=== PATIENT | female | born 1950 | race Caucasian/White ===

== ENCOUNTER → 2016-12-16 | Outpatient (CLI) | payer OTHER ==
[~2016-12-16] MED LIST: MELO7.5T5 PO; MULT-610 PO; OXYC1TAB3 PO
--- NOTE | 2016-12-16 14:35 | DIAGNOSTIC IMAGING REPORT ---
RIGHT HIP 2 VIEWS HISTORY: M25.551 Right hip pain Right COMPARISON: None. FINDINGS: There is no fracture or dislocation. Soft tissues are unremarkable. No radiopaque foreign bodies. The visualized pelvic bones are intact. Right hip cartilage space is maintained for age. IMPRESSION: No fracture or dislocation within the right hip. Electronically signed by: Connor Malik M.D. 12/16/2016 2:34 PM Dictated Date/Time: 12/16/2016 2:31 PM
== END | disposition home or self-care (01) ==
LOC: C.RAD 13:56
PROVIDERS: ATTEND Internal Medicine
DX: M25.551 Pain in right hip (principal)

== ENCOUNTER → 2017-02-28 | Outpatient (CLI) | payer OTHER ==
--- NOTE | 2017-02-28 11:37 | DIAGNOSTIC IMAGING REPORT ---
RIGHT KNEE INCLUDING BILATERAL STANDING AP VIEWS CLINICAL HISTORY: Right knee pain COMPARISON: None. DISCUSSION: The joint space of each knee appears symmetric on the standing view. No fractures are visualized. There are no erosive or destructive changes. There is no evidence for soft tissue swelling. IMPRESSION: No evidence of fracture. No erosive or destructive changes are visualized. Electronically signed by: Hitesh Howell M.D. 02/28/2017 11:35 AM Dictated Date/Time: 02/28/2017 11:34 AM
--- NOTE | 2017-02-28 11:39 | DIAGNOSTIC IMAGING REPORT ---
RIGHT KNEES, AP STANDING ( no charge) CLINICAL HISTORY: Right knee pain COMPARISON: None. DISCUSSION: The study was read in conjunction with a right knee series. No fractures are visualized. The joint spaces appear symmetric on this standing AP view. IMPRESSION: No significant joint space narrowing given the patient's age Electronically signed by: Hitesh Howell M.D. 02/28/2017 11:37 AM Dictated Date/Time: 02/28/2017 11:36 AM
== END | disposition home or self-care (01) ==
LOC: C.RAD 08:54
PROVIDERS: ATTEND Internal Medicine
DX: M25.561 Pain in right knee (principal)

== ENCOUNTER → 2017-03-02 | Outpatient (CLI) | payer OTHER ==
--- NOTE | 2017-03-02 16:37 | DIAGNOSTIC IMAGING REPORT ---
MRI THE RIGHT KNEE NO CONTRAST CLINICAL HISTORY: Right knee pain status post trauma COMPARISON STUDY: Conventional radiographic study dated 02/28/2017 FINDINGS: Imaging was performed the sagittal, coronal, and axial planes. There are no areas of marrow edema to indicate occult fracture or bone bruise. The quadriceps and patellar tendons appear intact. The medial and lateral collateral ligaments appear intact. The patellar retinacular structures appear intact. No tears a lateral meniscus are visualized. There is a root tear of the medial meniscus. IMPRESSION: Medial meniscus root tear. Electronically signed by: Hitesh Howell M.D. 03/02/2017 4:35 PM Dictated Date/Time: 03/02/2017 4:33 PM
[2017-03-02 17:15] LABS: BLOOD UREA NITROGEN 11 mg/dl (7-18); BUN/CREATININE RATIO 14.3 (10-20); CALCIUM 8.8 mg/dl (8.5-10.1); CARBON DIOXIDE 29 mmol/L (21-32); CHLORIDE 99 mmol/L (98-107); CREATININE 0.74 mg/dl (0.60-1.20); GLUCOSE 105 mg/dl (70-99); POTASSIUM 3.9 mmol/L (3.5-5.1); SODIUM 135 mmol/L (136-145)
== END | disposition home or self-care (01) ==
LOC: C.MRIBC 15:31
PROVIDERS: ATTEND Internal Medicine
DX: S83.241A Other tear of medial meniscus, current injury, right knee, initial encounter (principal); G47.9 Sleep disorder, unspecified; R26.81 Unsteadiness on feet; R20.0 Anesthesia of skin; W19.XXXA Unspecified fall, initial encounter; M54.5 Low back pain

== ENCOUNTER → 2017-03-03 | Outpatient (CLI) | payer OTHER ==
[~2017-03-03] MED LIST changes: +GADAVIST IV PRN
--- NOTE | 2017-03-03 12:37 | DIAGNOSTIC IMAGING REPORT ---
MRI LUMBAR SPINE COMBINATION CLINICAL HISTORY: Back pain with right leg radiculopathy. TRAUMA TECHNIQUE: Sagittal and axial T1, T2 and STIR images were obtained. Imaging was performed before and after the administration of 6.5 cc of intravenous Gadavist. COMPARISON STUDY: No previous studies for comparison. OBSERVATIONS: The vertebral bodies and posterior elements appear intact. There is no abnormal bony signal present to suggest a marrow replacement process. L1-2: No disc protrusions or extrusions. No evidence of spinal canal or neural foraminal compromise. L2-3: No disc protrusions or extrusions. No evidence of spinal canal or neural foraminal compromise. L3-4: There is a circumferential disc bulge with mild triangular spinal canal narrowing. There is no significant foraminal stenosis. L4-5: There is a circumferential disc bulge present. There is mild spinal stenosis. There is minor right-sided foraminal narrowing. L5-S1: There is a mild circumferential disc bulge. There is mild facet joint arthropathy. There is no spinal stenosis. There is mild left-sided foraminal narrowing. The conus medullaris and cauda equina appear normal. There is increased T1 signal within the left L3 nerve root. This finding is of doubtful clinical significance given the reported right-sided symptoms. IMPRESSION: 1. Multilevel spondylitic changes. Mild spinal stenosis at the L3-4 and L4-5 levels. Right-sided foraminal narrowing at the L4-5 level. Left-sided foraminal narrowing at the L5-S1 level. 2. No evidence of pathologic enhancement Electronically signed by: Hitesh Howell M.D. 03/03/2017 12:34 PM Dictated Date/Time: 03/03/2017 12:28 PM
== END | disposition home or self-care (01) ==
LOC: C.MRI 10:29
PROVIDERS: ATTEND Internal Medicine
DX: M25.551 Pain in right hip (principal); M48.00 Spinal stenosis, site unspecified; M85.80 Other specified disorders of bone density and structure, unspecified site; R26.81 Unsteadiness on feet; R20.0 Anesthesia of skin

== ENCOUNTER → 2017-03-07 | Outpatient (CLI) | payer OTHER ==
[~2017-03-07] MED LIST changes: -GADAVIST IV PRN
[2017-03-07 09:55] LABS: URINE APPEARANCE CLEAR (CLEAR); URINE BILIRUBIN NEG (NEG); URINE COLOR YELLOW; URINE EPITHELIAL CELL AUTO 0-5 /lpf (0-5); URINE NITRITE NEG (NEG); URINE PH 6.5 (4.5-7.5); URINE SPECIFIC GRAVITY 1.007 (1.000-1.030); UROBILINOGEN NEG (NEG); ZZUR CULT IF INDIC CLEAN CATCH NO
[2017-03-07 09:59] LABS: MANUAL MICROSCOPIC REQUIRED? NO; REVIEW REQ? NO
[2017-03-07 10:22] LABS: ALT/SGPT 18 U/L (12-78); BLOOD UREA NITROGEN 6 mg/dl (7-18); BUN/CREATININE RATIO 10.7 (10-20); CALCIUM 8.7 mg/dl (8.5-10.1); CARBON DIOXIDE 28 mmol/L (21-32); CHLORIDE 94 mmol/L (98-107); CREATININE 0.57 mg/dl (0.60-1.20); GLUCOSE 101 mg/dl (70-99); POTASSIUM 4.2 mmol/L (3.5-5.1); SODIUM 129 mmol/L (136-145)
[2017-03-07 10:25] LABS: ALB/GLOB RATIO 1.1 (0.9-2); ALKALINE PHOSPHATASE 51 U/L (45-117); AST/SGOT 13 U/L (15-37)
== END | disposition home or self-care (01) ==
LOC: C.LAB 08:19
PROVIDERS: ATTEND Internal Medicine
DX: M48.00 Spinal stenosis, site unspecified (principal)

== ENCOUNTER 2017-03-09 16:23 | Emergency (ER) | payer OTHER ==
[~2017-03-09] VITALS: Ht 162.6 cm; Wt 60.0 kg
[2017-03-09 16:28] VITALS: TEMP 36.4; Ht 162.6 cm; Wt 60.0 kg
[2017-03-09] MEDS ORDERED: ACETAMINOPHEN 500 MG TAB PO STA (16:43)
[2017-03-09] MEDS ORDERED: KETOROLAC TROMETHAMINE 60 MG/2 ML VIAL IM STA (16:43)
[2017-03-09] MEDS ORDERED: MULT-610 PO (16:57)
[2017-03-09] MEDS ORDERED: MELO7.5T5 PO (16:57)
--- NOTE | 2017-03-09 17:28 | DIAGNOSTIC IMAGING REPORT ---
RIGHT KNEE 3 VIEWS CLINICAL HISTORY: Right knee pain following injury. COMPARISON: Right knee radiograph February 28, 2017 and MRI of the right knee March 02, 2017. FINDINGS: Alignment of the right knee is anatomic. There is no acute fracture or joint effusion. Joint spaces are preserved. There is minimal osteophytosis of the right knee. IMPRESSION: No acute fracture or joint effusion of the right knee. Electronically signed by: Phong Alvarado M.D. 03/09/2017 5:26 PM Dictated Date/Time: 03/09/2017 5:25 PM
[2017-03-09] MEDS ORDERED: OXYCODONE IR HOME PACK PO ONE (17:45)
[2017-03-09] MEDS ORDERED: OXYCODONE HCL IR 5 MG TAB (IMMEDIATE RELEASE) PO STA (17:45)
[2017-03-09] MEDS ORDERED: OXYC1TAB3 PO (17:48)
[2017-03-09 18:25] VITALS: BP 116/74; PULSE 66; O2SAT 98
--- NOTE | 2017-03-09 21:38 | EMERGENCY ROOM VISIT NOTE ---
ED Visit Note First contact with patient: 16:29 CHIEF COMPLAINT: knee pain HISTORY OF PRESENT ILLNESS: This 66 year old female patient presents to the emergency department after sustaining an injury to the right knee after it " gave out" while walking about 30 minutes ago. The patient denies any other injuries besides their knee. The patient is without significant swelling or bruising. There is pain medially. They rate the pain as dull and 9/10. The patient states they are not able to walk on it. No numbness or tingling. She has been having issues with this knee over the past several months. She has undergone physical therapy without improvement. She did have an MRI about one week ago which showed a meniscus tear in this knee. She states that today she was feeling much better than previous up until the time of her injury. REVIEW OF SYSTEMS: A 6 system review of systems was completed with positives and pertinent negatives listed in the HPI. ALLERGIES: No known allergies MEDICATIONS: No chronic medications PMH: Otherwise healthy SOCIAL HISTORY: Employed at this facility and lives in [place] PHYSICAL EXAM: Vital Signs: Reviewed Nurse's notes, vital signs stable. GENERAL : White female, no acute distress, but appears in pain, well-developed, well- nourished. MENTAL STATUS: Alert, oriented to person place and time, and cooperative. MUSCULOSKELETAL: The right knee is no swollen. There is no ecchymosis. There is no joint effusion present. The patient is tender medially. There is medial joint line tenderness. The patella does not subluxate. Range of motion is normal. Strength of the quads and hamstrings is 3/ 5. Lissa's is negative. Anita's and Anterior Drawer tests are negative. Varus and valgus straining was not performed secondary to patient discomfort. The foot and toes are warm and well-perfused. Dorsalis pedis pulse 2+. Sensation to pain and light touch is intact. Capillary refill less than 2 seconds. RIGHT KNEE 3 VIEWS CLINICAL HISTORY: Right knee pain following injury. COMPARISON: Right knee radiograph February 28, 2017 and MRI of the right knee March 02, 2017. FINDINGS: Alignment of the right knee is anatomic. There is no acute fracture or joint effusion. Joint spaces are preserved. There is minimal osteophytosis of the right knee. IMPRESSION: No acute fracture or joint effusion of the right knee. EMERGENCY DEPARTMENT COURSE: Physical exam and history were performed. Nursing notes and EMR were reviewed. The patient appears to have stumbled after her knee gave out today, causing increased pain to her right knee. The patient has been following with [facility] orthopedics for this knee over the past several months. She has been doing physical therapy and had an outpatient MRI a week ago that showed a meniscus tear. X-rays today do not show evidence of acute fracture or significant effusion. The patient was given IM Toradol, oral Tylenol, and OxyIR for her symptoms. Following this she did have some improvement of her symptoms. The patient appears well for discharge home, and will be placed in a knee immobilizer. She was given crutches and a short prescription of OxyIR. I did recommend the patient contact [facility] orthopedics to arrange for further follow-up. The patient was otherwise invited back to the ER with any new, worsening, or concerning symptoms. Current/Historical Medications Scheduled Meloxicam (Mobic), 7.5 MG PO BID Multiple Vitamins W/ Minerals (Centrum Adults), 1 TAB PO DAILY Scheduled PRN Oxycodone Ir (Roxicodone Ir), 1-2 TAB PO Q6 PRN for Pain Allergies Coded Allergies: No Known Allergies (Unverified , 03/09/17) Vital Signs Date Time Temp Pulse Resp B/P Pulse Ox O2 Delivery O2 Flow Rate FiO2 03/09/17 18:25 66 14 116/74 98 03/09/17 17:16 62 12 122/82 03/09/17 16:28 36.4 84 18 133/80 99 Room Air Medications Administered Medications (Trade) Dose Ordered Sig/Anthony Route Start Time Stop Time Status Last Admin Dose Admin Ketorolac Tromethamine (Toradol Inj) 60 mg NOW STAT IM 03/09/17 16:43 03/09/17 16:44 DC 03/09/17 16:57 60 MG Acetaminophen (Tylenol Tab) 1,000 mg NOW STAT PO 03/09/17 16:43 03/09/17 16:44 DC 03/09/17 16:57 1,000 MG Oxycodone HCl (Roxicodone Immediate Rel 5MG Home Pack) 1 homepack UD ONCE PO 03/09/17 17:45 03/09/17 17:47 DC 03/09/17 18:14 1 HOMEPACK Oxycodone HCl (Roxicodone Immediate Rel Tab) 5 mg NOW STAT PO 03/09/17 17:45 03/09/17 17:47 DC 03/09/17 18:16 5 MG Departure Information Impression Primary Impression: Injury of right knee Dispostion Home / Self-Care Condition GOOD Prescriptions Oxycodone Ir (Roxicodone Ir) 5 Mg Tab 1-2 TAB PO Q6 Y for Pain, #24 TAB For Initial Treatment Prov: Choco Fuchs PA-C 03/09/17 Referrals Rc Carlson,P.A. Forms HOME CARE DOCUMENTATION FORM, IMPORTANT VISIT INFORMATION Patient Instructions My [facility] Additional Instructions You were seen and evaluated today on an emergency basis only. This is not a substitute for, or an effort to provide, complete comprehensive medical care. It is not possible to recognize and treat all injuries or illnesses in a single emergency department visit. For this reason it is recommended that you followup with [facility] orthopedics by telephone tomorrow to make a follow-up visit next week. Let them know you were seen in the emergency department to help facilitate care. Oxycodone (OxyIR) 5mg: Take ONE pill every SIX hours for breakthrough pain. Avoid alcohol, operating machinery or dangerous equipment, working on ladders or roofs, DRIVING, or situations where being under the influence may be dangerous. It is recommended to use an alin-mdb-sutbljy stool softener such as Colace, 100mg twice daily while taking this medication to avoid constipation. Continue [id number] naproxen and Tylenol as previously instructed by orthopedics. Use your knee immobilizer and walker to help prevent further injury or falls. You are welcome to return to the emergency department anytime with new, worsening, or concerning symptoms.
== END 2017-03-09 18:27 | disposition home or self-care (01) ==
LOC: C.EDB 16:24 → C.EDD 18:27
DX: S89.91XA Unspecified injury of right lower leg, initial encounter (principal); X50.9XXA Other and unspecified overexertion or strenuous movements or postures, initial encounter; Y93.01 Activity, walking, marching and hiking

== ENCOUNTER → 2017-03-09 | Outpatient (CLI) | payer OTHER ==
[2017-03-09 11:10] LABS: BLOOD UREA NITROGEN 6 mg/dl (7-18); BUN/CREATININE RATIO 10.1 (10-20); CALCIUM 9.1 mg/dl (8.5-10.1); CARBON DIOXIDE 26 mmol/L (21-32); CHLORIDE 102 mmol/L (98-107); GLUCOSE 111 mg/dl (70-99); POTASSIUM 4.7 mmol/L (3.5-5.1); SODIUM 138 mmol/L (136-145)
[2017-03-09 15:01] LABS: LYME DISEASE AB IGG NEG (NEG); LYME DISEASE AB IGM NEG (NEG)
== END | disposition home or self-care (01) ==
LOC: C.LAB 09:21
PROVIDERS: ATTEND Internal Medicine
DX: E87.1 Hypo-osmolality and hyponatremia (principal); M79.1 Myalgia

== ENCOUNTER → 2017-03-27 | Outpatient (CLI) | payer OTHER | END | disposition home or self-care (01) | LOC: C.LABSPEC 08:19 | PROVIDERS: ATTEND Internal Medicine | DX: M62.830 Muscle spasm of back (principal); M54.5 Low back pain; M79.1 Myalgia; R20.0 Anesthesia of skin; G47.9 Sleep disorder, unspecified ==

== ENCOUNTER → 2017-04-11 | Outpatient (CLI) | payer OTHER ==
--- NOTE | 2017-04-11 11:31 | DIAGNOSTIC IMAGING REPORT ---
RENAL ULTRASOUND HISTORY: Hematuria R31.29 Hematuria, microscopic COMPARISON: None. FINDINGS: Right kidney: Maximum dimension 12.0 cm. No evidence for hydronephrosis. 1.6 cm cyst. Normal corticomedullary differentiation and cortical thickness. Left kidney: Maximum dimension 11.5 cm. No evidence for hydronephrosis. Several small parapelvic cyst. Normal corticomedullary differentiation and cortical thickness. Bladder: No bladder wall thickening. The bilateral ureteral jets were identified. IMPRESSION: Small renal cysts bilaterally. Otherwise negative study Electronically signed by: Arnel Lovelace M.D. 04/11/2017 11:29 AM Dictated Date/Time: 04/11/2017 11:29 AM
== END | disposition home or self-care (01) ==
LOC: C.ULTR 10:55
PROVIDERS: ATTEND Internal Medicine Nephrology
DX: R31.29 Other microscopic hematuria (principal); N28.1 Cyst of kidney, acquired

== ENCOUNTER → 2017-04-27 | Outpatient (CLI) | payer OTHER | END | disposition home or self-care (01) | LOC: C.LAB 13:05 | PROVIDERS: ATTEND Internal Medicine | DX: E87.1 Hypo-osmolality and hyponatremia (principal); N14.4 Toxic nephropathy, not elsewhere classified; R26.81 Unsteadiness on feet; R20.2 Paresthesia of skin ==

== ENCOUNTER → 2017-05-19 | Outpatient (CLI) | payer OTHER ==
[2017-05-19 12:30] LABS: C-REACTIVE PROTEIN < 0.29 mg/dl (0-0.29)
[2017-05-23 04:35] LABS: ANTI-CENTROMERE AB <1.0 NEG AI (<1.0 NEG); ANTI-SS-A <1.0 NEG AI (<1.0 NEG); ANTI-SS-B <1.0 NEG AI (<1.0 NEG); DNA ds CRITHIDIA NEGATIVE (NEGATIVE); MICROSOMAL AB 5 IU/ML (<9); PARVOVIRUS IgM INDEX 0.2 (<0.9); Sm Antibody <1.0 NEG AI (<1.0 NEG)
== END | disposition home or self-care (01) ==
LOC: C.LAB 10:15
PROVIDERS: ATTEND Internal Medicine
DX: R20.2 Paresthesia of skin (principal)

== ENCOUNTER → 2017-05-31 | Outpatient (CLI) | payer OTHER ==
[2017-05-31 14:50] LABS: URINE APPEARANCE CLEAR (CLEAR); URINE BILIRUBIN NEG (NEG); URINE COLOR YELLOW; URINE EPITHELIAL CELL AUTO 0-5 /lpf (0-5); URINE NITRITE NEG (NEG); URINE PH 7.5 (4.5-7.5); URINE SPECIFIC GRAVITY 1.016 (1.000-1.030); UROBILINOGEN NEG (NEG)
[2017-05-31 14:55] LABS: MANUAL MICROSCOPIC REQUIRED? NO; REVIEW REQ? NO
== END | disposition home or self-care (01) ==
LOC: C.LAB 12:47
PROVIDERS: ATTEND Internal Medicine Nephrology
DX: R31.29 Other microscopic hematuria (principal)

== ENCOUNTER → 2017-06-12 | Outpatient (CLI) | payer OTHER | END | disposition home or self-care (01) | LOC: C.LABSPEC 08:32 | PROVIDERS: ATTEND Internal Medicine Nephrology | DX: N14.4 Toxic nephropathy, not elsewhere classified (principal) ==

== ENCOUNTER → 2017-06-22 | Outpatient (CLI) | payer OTHER ==
[2017-06-22 11:21] LABS: BLOOD UREA NITROGEN 13 mg/dl (7-18); BUN/CREATININE RATIO 22.8 (10-20); CALCIUM 9.3 mg/dl (8.5-10.1); CARBON DIOXIDE 27 mmol/L (21-32); CHLORIDE 107 mmol/L (98-107); CREATININE 0.57 mg/dl (0.60-1.20); GLUCOSE 97 mg/dl (70-99); SODIUM 140 mmol/L (136-145)
[2017-06-26 11:05] LABS: COLLECTION SAMPLE Venous; LEAD BLOOD <1 mcg/dL (<5); VITAMIN B6** TC 926 11.2 ng/mL (2.1-21.7)
== END | disposition home or self-care (01) ==
LOC: C.LAB 08:26
PROVIDERS: ATTEND Internal Medicine
DX: N14.4 Toxic nephropathy, not elsewhere classified (principal); R73.9 Hyperglycemia, unspecified; M79.1 Myalgia

== ENCOUNTER → 2017-07-23 | Outpatient (CLI) | payer OTHER ==
--- NOTE | 2017-08-04 06:39 | CODING QUERY NO DIAGNOSIS ---
TREATMENT RENDERED WITHOUT A DIAGNOSIS To promote full compliance with coding requirements relating to patient care, physician participation is requested in all cases of body sander uncertainty. Please assist us with providing a diagnosis/symptom for the test(s) below: A diagnosis/symptom was not documented on your Order. A valid diagnosis/symptom is required to bill all insurances. Please remember that we are unable to code a diagnosis of rule out, probable, possible, questionable, or suspected. Tests that require a diagnosis: DOS 07/23 * Gadolinium, 24 hr Urine DIAGNOSIS: Provider Signature: Date: Thank you Jaky [address] [facility] Information Management Once completed, please kindly fax back to [phone] For questions please call [phone]
== END | disposition home or self-care (01) ==
LOC: C.LABSPEC 08:07
PROVIDERS: ATTEND Internal Medicine
DX: N14.4 Toxic nephropathy, not elsewhere classified (principal); R20.0 Anesthesia of skin; R20.2 Paresthesia of skin

== ENCOUNTER → 2017-07-25 | Outpatient (CLI) | payer OTHER ==
[2017-07-27 07:34] LABS: METHYLMALONIC ACID 91 NMOL/L (87-318)
== END | disposition home or self-care (01) ==
LOC: C.LAB 10:19
PROVIDERS: ATTEND Psychiatry & Neurology Neurology
DX: R20.2 Paresthesia of skin (principal)

== ENCOUNTER → 2017-09-19 | Outpatient (CLI) | payer OTHER ==
[~2017-09-19] MED LIST changes: -OXYC1TAB3 PO
== END | disposition home or self-care (01) ==
LOC: C.PAPS 09:19
PROVIDERS: ATTEND Obstetrics & Gynecology
DX: Z12.4 Encounter for screening for malignant neoplasm of cervix (principal)

== ENCOUNTER → 2017-10-31 | Outpatient (CLI) | payer OTHER ==
--- NOTE | 2017-11-01 07:35 | MAMMOGRAPHY REPORT ---
BILATERAL DIGITAL SCREENING MAMMOGRAM TOMOSYNTHESIS WITH CAD: 10/31/2017 CLINICAL HISTORY: Routine screening. Patient has no complaints. TECHNIQUE: Breast tomosynthesis in addition to standard 2D mammography was performed. Current study was also evaluated with a Computer Aided Detection (CAD) system. COMPARISON: Comparison is made to exams dated: 09/08/2016 mammogram - [facility], 07/17/2015 mammogram, 06/06/2014 mammogram, 05/28/2013 mammogram, 05/18/2012 mammogram, and 04/29/2011 mammo gram. BREAST COMPOSITION: There are scattered areas of fibroglandular density in both breasts. FINDINGS: The glandular pattern is similar to prior mammograms. There are a few benign-appearing estefania cifications. No suspicious mass, architectural distortion or cluster of microcalcifications is seen. IMPRESSION: ACR BI-RADS CATEGORY 1: NEGATIVE There is no mammographic evidence of malignancy. A 1 year screening mammogram is recommended. The pa tient will receive written notification of the results. Approximately 10% of breast cancers are not detected with mammography. A negative mammographic report should not delay biopsy if a clinically suggestive mass is present. Arlene Sosa M.D. ay/:11/01/2017 07:10:31 Powder Shoveler: Genevieve GOMEZ(James)(Zia), [facility] letter sent: Normal 1/2 BI-RADS Code: ACR BI-RADS Category 1: Negative
== END | disposition home or self-care (01) ==
LOC: C.MAMM 11:57
PROVIDERS: ATTEND Obstetrics & Gynecology
DX: Z12.31 Encounter for screening mammogram for malignant neoplasm of breast (principal)

== ENCOUNTER → 2017-11-05 | Outpatient (CLI) | payer OTHER | END | disposition home or self-care (01) | LOC: C.LABSPEC 08:56 | PROVIDERS: ATTEND Psychiatry & Neurology Neurology | DX: R20.2 Paresthesia of skin (principal) ==

== ENCOUNTER → 2017-11-14 | Outpatient (CLI) | payer OTHER ==
--- NOTE | 2017-11-14 12:44 | DIAGNOSTIC IMAGING REPORT ---
CHEST 2 VIEWS ROUTINE CLINICAL HISTORY: J18.1 Right lower lobe pneumonia COMPARISON STUDY: No previous studies for comparison. FINDINGS: The cardiac and mediastinal contours are normal. There is no evidence of focal pulmonary consolidation. There is no evidence of failure. No pleural effusions are visualized.[ There is minimal scar/atelectatic change at the right lung base. IMPRESSION: No active disease in the chest. Electronically signed by: Hitesh Howell M.D. 11/14/2017 12:43 PM Dictated Date/Time: 11/14/2017 12:43 PM
== END | disposition home or self-care (01) ==
LOC: C.RAD 12:14
PROVIDERS: ATTEND Internal Medicine
DX: J18.1 Lobar pneumonia, unspecified organism (principal)

== ENCOUNTER → 2017-12-06 | Outpatient (CLI) | payer OTHER ==
[2017-12-06 13:34] LABS: ALBUMIN 3.9 gm/dl (3.4-5.0); BLOOD UREA NITROGEN 10 mg/dl (7-18); CALCIUM 9.2 mg/dl (8.5-10.1); CARBON DIOXIDE 27 mmol/L (21-32); CREATININE 0.55 mg/dl (0.60-1.20); GLUCOSE 98 mg/dl (70-99); SODIUM 134 mmol/L (136-145)
== END | disposition home or self-care (01) ==
LOC: C.LAB 10:37
PROVIDERS: ATTEND Internal Medicine Nephrology
DX: R31.29 Other microscopic hematuria (principal)

== ENCOUNTER → 2018-01-07 | Outpatient (CLI) | payer OTHER ==
--- NOTE | 2018-01-25 11:15 | CODING QUERY NO DIAGNOSIS ---
Valid Physician Order Needed A valid physician order must be submitted in order to properly bill for the service(s) provided, including date of service(s), valid diagnosis, and physician signature. If these tests are done on a recurring basis the original physician order must be submitted in order to code and bill for the service(s) provided. Please fax us the original, signed physician order so that we may expedite billing to [phone] DOS 01/07/18 * Gadolinium 24 hour urine (per Patient Access, no order in [employer]) Thank you Jennifer Guevara [facility] Information Management
== END | disposition home or self-care (01) ==
LOC: C.LABSPEC 09:14
PROVIDERS: ATTEND Internal Medicine
DX: N14.4 Toxic nephropathy, not elsewhere classified (principal)

== ENCOUNTER → 2018-01-30 | Outpatient (CLI) | payer OTHER | END | disposition home or self-care (01) | LOC: C.LAB 08:38 | PROVIDERS: ATTEND Psychiatry & Neurology Neurology | DX: R23.8 Other skin changes (principal) ==

== ENCOUNTER → 2018-02-16 | Outpatient (CLI) | payer OTHER ==
--- NOTE | 2018-02-16 12:36 | DIAGNOSTIC IMAGING REPORT ---
R HAND MIN 3 VIEWS ROUTINE, L HAND MIN 3 VIEWS ROUTINE HISTORY: 67 years-old Female FINGER SWELLING,MYALGIA BOTH HANDS chronic bilateral hand pain with finger swelling COMPARISON: None available TECHNIQUE: 3 views of the bilateral hands for a total of 6 images FINDINGS: LEFT: Bones are mildly demineralized. Mild radiocarpal, first metacarpal and multidigit interphalangeal degenerative changes. Moderate joint space narrowing seen within the second DIP and third PIP joints. Minimal medial subluxation of the second DIP joint, likely degenerative in nature. No opaque foreign body. No acute fracture or dislocation. Mild soft tissue swelling of the third and fourth digits. RIGHT: Bones are mildly demineralized. No acute fracture or dislocation. Mild radiocarpal, first carpometacarpal and multidigit interphalangeal degenerative changes. Moderate joint space narrowing of the third and fifth DIP joints. No opaque foreign body. Soft tissues are unremarkable. IMPRESSION: 1. No acute fracture or dislocation. 2. Mildly demineralized appearance of the bones with mostly mild osteoarthritis seen bilaterally. Moderate degenerative changes are seen within several interphalangeal joints as above. 3. Mild soft tissue swelling of the left third and fourth digits. The above report was generated using voice recognition software. It may contain grammatical, syntax or spelling errors. Electronically signed by: Benjamín Ramos M.D. 02/16/2018 12:34 PM Dictated Date/Time: 02/16/2018 12:29 PM
== END | disposition home or self-care (01) ==
LOC: C.RAD 10:26
PROVIDERS: ATTEND Internal Medicine Rheumatology
DX: M79.1 Myalgia (principal); M79.89 Other specified soft tissue disorders; L94.3 Sclerodactyly; M19.041 Primary osteoarthritis, right hand; M19.042 Primary osteoarthritis, left hand

== ENCOUNTER → 2018-03-11 | Outpatient (CLI) | payer OTHER | END | disposition home or self-care (01) | LOC: C.LABSPEC 09:14 | PROVIDERS: ATTEND Psychiatry & Neurology Neurology | DX: T56.891A Toxic effect of other metals, accidental (unintentional), initial encounter (principal) ==

== ENCOUNTER → 2018-06-13 | Outpatient (CLI) | payer OTHER ==
[2018-06-13 10:00] LABS: BLOOD UREA NITROGEN 13 mg/dl (7-18); CARBON DIOXIDE 29 mmol/L (21-32); GLUCOSE 83 mg/dl (70-99); POTASSIUM 4.3 mmol/L (3.5-5.1); SODIUM 139 mmol/L (136-145)
== END | disposition home or self-care (01) ==
LOC: C.LAB 08:12
PROVIDERS: ATTEND Internal Medicine Nephrology
DX: E87.1 Hypo-osmolality and hyponatremia (principal); R31.29 Other microscopic hematuria